=== PATIENT | female | born 2000 | race Caucasian/White ===

== ENCOUNTER → 2021-07-01 | Outpatient (CLI) | payer OTHER | LOC: US 13:13 | DX: N63.10 Unspecified lump in the right breast, unspecified quadrant (principal) | CPT/HCPCS: 76641 ==

== ENCOUNTER → 2022-01-06 | Outpatient (CLI) | payer OTHER | LOC: EXRD 15:00 | DX: R60.0 Localized edema (principal) | CPT/HCPCS: 93971 ==